=== PATIENT | male | born 1955 | race Two or more races ===

== ENCOUNTER → 2016-06-17 | Day surgery (SDC) | payer BC ==
[2016-06-17] VITALS (10 sets, daily range): BP systolic 95–119; BP diastolic 61–82
[~2016-06-17] VITALS: Ht 167.6 cm; Wt 74.8 kg
[~2016-06-17] MED LIST: ASPIR 8181 MG ORAL; Bupivacaine 0.25% Inj 30ml INJ ONE; Bupivacaine w/Epi 0.25% 30ml Vial INJ ONE; Duramorph PF 10mg/10ml amp EPIDUR ONE; EPINEPHrine 1mg/1ml Amp ONE; Kenalog-40 1ml Vial ONE; Ketorolac 30mg Inj ONE; LR 1000ml ONE; Lidocaine 1% 10mg/ml/Epi 0.005mg/ml 30ml vial INJ ONE; Lidocaine 1% MPF 10mg/ml 5ml ONE; MULTIVITAMINS1 EAC2 ORAL; Metoclopramide 10mg/2ml Inj ONE; Midazolam 2mg/2ml Inj ONE; Morphine Sulfate 2mg/ml Inj IVP PRN; Morphine Sulfate PF 10 ML ONE; NS Irrig 2000ml IRRIG ONE; Norco 5mg/325mg tab ORAL PRN; Propofol 10mg/ml 20ml IV ONE; SIMVASTATIN10 MG ORAL; VITAMIN D1000 UNI1 ORAL; ceFAZolin 1gm/50ml Premix 50 ML IV ONE; celeBREX 200mg Cap **SURGERY PATIENTS ONLY ORAL ONE; fentaNYL 100 mcg/2 mL IV ONE; fentaNYL 100 mcg/2 mL IV PRN; oxyCONTIN 20mg tab ORAL ONE
--- NOTE | 2016-06-17 07:13 | Pre-Procedure Note/Attestation ---
Pre-Procedure Note/Attestation Complete Prior to Procedure Planned Procedure: right Procedure Narrative: knee arthroscopy, medial and lateral mensectomy Indications for Procedure Pre-Operative Diagnosis: right knee medial and lateral meniscus tear Attestation I attest that I discussed the nature of the procedure; its benefits; risks and complications; and alternatives (and the risks and benefits of such alternatives ), prior to the procedure, with the patient (or the patient's legal senior outside sales representative). I attest that, if there was a reasonable possibility of needing a blood transfusion, the patient (or the patient's legal senior outside sales representative) was given the [facility] standardized written summary, pursuant to the Shay [place]ed[place] Blood Safety Act ([place] Health and Safety Code # 1645, as amended). I attest that I re-evaluated the patient just prior to the surgery and that there has been no change in the patient's H&P, except as documented below: SUPRIYA XIONG Jun 17, 2016 07:13
--- NOTE | 2016-06-17 07:14 | Operative Note - PDOC ---
Operative Note Operative Note Pre-op Diagnosis: right knee medial and lateral meniscus tear Procedure: right knee arthroscopy Post-op Diagnosis: same as pre-op plus Operative Findings: consistent w/pre-op dx studies Anesthesia: MAC Specimen: none Complications: none Condition: stable Estimated Blood Loss: none Implant(s) used?: No SUPRIYA XIONG Jun 17, 2016 07:14
--- NOTE | 2016-06-17 08:27 | Immediate Post-Op Evaluation ---
Immediate Post-Op Evalulation Immediate Post-Op Evalulation Procedure: right knee arthroscopy Date of Evaluation: Jun 17, 2016 Time of Evaluation: 08:26 IV Fluids: 500 Blood Pressure Systolic: 96 Blood Pressure Diastolic: 63 Pulse Rate: 79 Respiratory Rate: 14 O2 Sat by Pulse Oximetry: 100 Temperature (Fahrenheit): 97.8 Nausea: No Vomiting: No Complications none Patient Status: awake, reacts, patent Hydration Status: adequate Drug: ancef 2 g Given Within 1 Hr of Incision: Yes Time Given: 08:00 AURORA DRAKE CRNA Jun 17, 2016 08:27
--- NOTE | 2016-06-17 08:28 | Anethesia Preoperative Eval ---
Anesthesia Pre-op PMH/ROS General Date of Evaluation: Jun 17, 2016 Time of Evaluation: 07:30 Anesthesiologist: ce ASA Score: ASA 1 Mallampati Score Class I : Soft palate, uvula, fauces, pillars visible Class II: Soft palate, uvula, fauces visible Class III: Soft palate, base of uvula visible Class IV: Only hard plate visible Surgeon: jarrod Diagnosis: meniscus tear Surgical Procedure: right knee arthroscopy Anesthesia History: none Family History: no anesthesia problems Allergies: Coded Allergies: No Known Allergies (Unverified , 06/15/16) Medications: see eMAR Past Medical History Cardiovascular: Denies: CAD, HTN, PA, arrhythmia, other, valve dz Pulmonary: Denies: COPD, BARBI, asthma, other Gastrointestinal/Genitourinary: Denies: CRI, ESRD, GERD, other Neurologic/Psychiatric: Denies: CVA, TIA, dementia, depression/anxiety, other Endocrine: Denies: DM, hypothyroidism, other, steroids HEENT: Denies: ZUNI (L), ZUNI (R), cataract (L), cataract (R), glaucoma, other Hematology/Immune: Denies: DVT, anemia, bleeding disorder, other PSxH Narrative: foot surgery Anesthesia Pre-op Phys. Exam Physician Exam Last Vital Signs Date Time Temp Pulse Resp B/P Pulse Ox O2 Delivery O2 Flow Rate FiO2 06/17/16 07:03 97.7 17 17 119/82 96 Room Air Constitutional: NAD Neurologic: CN 2-12 intact Cardiovascular: RRR Respiratory: CTA Gastrointestinal: S/NT/ND Airway Exam Mallampati Classification 2 Mallampati Score: Class II MO: full Neck: normal ROM: full Dentures: no lower, no upper Anesthesia Pre-op A/P Studies Pre-op Studies: EKG - sr Risk Assessment & Plan Plan: general Status Change Before Surgery: No Pre-Antibiotics Drug: ancef 2 g Given Within 1 Hr of Incision: Yes Time Given: 08:00 AURORA DRAKE CRNA Jun 17, 2016 08:28
--- NOTE | 2016-06-17 10:41 | 48 Hour Post Anesthesia Eval ---
Post Anesthesia Evaluation Procedure: right knee arthroscopy Date of Evaluation: Jun 17, 2016 Time of Evaluation: 09:40 Blood Pressure Systolic: 112 0: 67 Pulse Rate: 75 O2 Sat by Pulse Oximetry: 99 Airway: patent Nausea: No Vomiting: No Hydration Status: adequate Cardiopulmonary Status: normal Mental Status/LOC: patient returned to baseline Post-Anesthesia Complications: none Follow-up care needed: N/A AURORA DRAKE CRNA Jun 17, 2016 10:41
--- NOTE | 2016-06-17 17:38 | Operative Note - Dictated ---
DATE OF OPERATION: 06/17/2016 PREOPERATIVE DIAGNOSIS: Right knee medial and lateral meniscus tear. POSTOPERATIVE DIAGNOSIS: Right knee medial and lateral meniscus tear. PROCEDURES: 1. Right knee arthroscopic medial and lateral meniscectomy. 2. Synovectomy medial, lateral and patellofemoral compartments. SURGEON: Jermain Rome M.D. ANESTHESIA: MAC, local. INDICATION FOR PROCEDURE: The patient is a pleasant 60-year-old gentleman with progressive knee pain. He had MRI, which showed a meniscal tear on both medial and lateral meniscus. Given that he had continued issues, failed conservative treatment and elected to go right knee arthroscopic medial and lateral meniscectomy. Risks, limitations, expectations and complications of procedure were discussed in detail. All questions were addressed. DESCRIPTION OF PROCEDURE: After informed consent was obtained, the patient was taken to the operative room and was placed under monitored anesthesia control. Tourniquet applied to the right proximal thigh. The right leg was prepped and draped in a sterile manner. Ancef was administered. Time-out was performed. The portal sites were marked out. Under sterile conditions, 20 mL of 0.25% Marcaine plain injected in to the right knee. The portal sites were injected with 1% lidocaine with epinephrine. Esmarch was used to exsanguinate the extremity. Tourniquet was insufflated to 250 mm pressure. Inferolateral stab incision then made. Trocar was introduced in to the knee joint. There is hypertrophic synovial tissue in the patellofemoral compartment. Medial gutter was entered. Medial working portal was established. There is tear at the posterior horn medial meniscus. Partial medial meniscectomy was performed. Once that was completed, the synovectomy was carried in the intercondylar notch in the lateral compartment. Anterior cruciate ligament was probed, noted to be intact. Lateral compartment was entered. There is a tear of the anterior and midbody of the meniscus and partial lateral meniscectomy was also completed. At this point, the camera was repositioned in the patellofemoral compartment. Synovectomy in retropatellar space was completed. Once that was done, the instruments removed. Portal sites closed with 3-0 Monocryl suture. Steri-Strips and a sterile dressing were applied. ESTIMATED BLOOD LOSS: Minimal. COMPLICATIONS: None. SPECIMENS: None. IMPLANTS: None. Jermain Rome M.D. DR: VALERIA JOB#: [id number] CC:
== END | disposition home or self-care (01) ==
LOC: SUR 06:27
DX: M23.221 Derangement of posterior horn of medial meniscus due to old tear or injury, right knee (principal); M23.261 Derangement of other lateral meniscus due to old tear or injury, right knee; M67.261 Synovial hypertrophy, not elsewhere classified, right lower leg
CPT/HCPCS: 29880; 97161; J0690; J1885; J2250; J2274; J2405; J2704; J2765; J3010; J3301; J3490; J7120; 94003; 94150